=== PATIENT | male | born 1980 | race Caucasian/White ===

== ENCOUNTER 2022-06-16 08:53 | Outpatient (REF) | payer OTHER, SELFPAY ==
[2022-06-16 12:05] LABS: Cholesterol 212 mg/dL; HDL Cholesterol 33 mg/dL; LDL Cholesterol Calculated 136 mg/dl; Triglycerides 218 mg/dL
== END 2022-06-16 08:54 | disposition home or self-care (01) ==
LOC: HO.WFDLDS 08:53
PROVIDERS: Visit Provider Internal Medicine
DX: E78.5 Hyperlipidemia, unspecified (principal)
CPT/HCPCS: 36415; 80061